=== PATIENT | male | born 1985 | race Caucasian/White ===

== ENCOUNTER 2019-10-07 15:02 | Emergency (ER) | payer OTHER ==
[~2019-10-07] VITALS: Ht 175.3 cm; Wt 93.4 kg
--- NOTE | 2019-10-07 15:54 | NUR ---
BIBS FROM HOME TO ER BED 12. AAOX4. NOT IN RESP DISTRESS, BREATHING EVEN AND UNLABORED. AMBULATORY. CAME IN FOR PALPITAION. PER PT, HE AL OF A SUDDEN FELT HAVING RAPID HR, FEELING OF DIFFULUCT TO BREATH, TINGLING AND NUMBNESS ON BOTH HIS ARMS. DURING ASSESSMENT, PT IS NOTED WITH HR 73. PT IS ANXIOUS UPON PRESENTATION. DENIES ANY CHEST PAIN. TINGLING AND NUMBNESS IS NOT PRESENT AT TIME OF ASSSESMENT. PT REPORTS THAT HE HAD SOME ALCOHOL LAST NIGHT. SINCE THIS MORNING HE ALREADY HAD 3 CUPS OF GREEN TEA. PT ON MONITOR. AWAITING MD FOR AYDEE.
[2019-10-07] MEDS ORDERED: ALPRAZOLAM 0.25 MG TABLET PO ONE (16:00)
[2019-10-07] MEDS ORDERED: ALPRAZOLAM 0.25 MG TABLET ONE (16:00)
--- NOTE | 2019-10-07 16:04 | NUR ---
EKG AT BEDSIDE
[2019-10-07 16:15] LABS: BASOPHILS % (AUTO) 0.3 % (0.0-2.0); EOSINOPHILS % (AUTO) 1.3 % (0.0-6.0); HEMATOCRIT 44 % (39-51); LYMPHOCYTES # (AUTO) 1.2 /CMM (0.8-4.8); LYMPHOCYTES % (AUTO) 22.1 % (20.0-44.0); MEAN CORPUSCULAR HGB CONC 34 g/dl (31.0-36.0); MEAN CORPUSCULAR VOLUME 89 fL (80-96); MONOCYTES # (AUTO) 0.4 /CMM (0.1-1.30); MONOCYTES % (AUTO) 6.3 % (2.0-12.0); NEUTROPHILS # (AUTO) 3.9 /CMM (1.8-8.9); PLATELET COUNT (AUTO) 189 /CMM (150-450); RED BLOOD CELL COUNT(AUTO) 4.95 MIL/uL (4.5-6.0); WHITE BLOOD COUNT (AUTO) 5.6 K/uL (4.3-11.0)
[2019-10-07 16:22] LABS: CALCIUM, SERUM 8.9 mg/dL (8.5-10.1); CREATININE 0.9 mg/dL (0.6-1.3); POTASSIUM 3.7 mmol/L (3.5-5.1)
[2019-10-07 17:37] VITALS: BP 134/77
--- NOTE | 2019-10-07 17:37 | NUR ---
Patient discharged to home in stable condition. Written and verbal after care instructions given. Patient verbalizes understanding of instruction. Pt ambulatory with a steady gait
== END 2019-10-07 17:38 | disposition home or self-care (01) ==
LOC: ER 15:25
DX: F41.9 Anxiety disorder, unspecified (principal)
CPT/HCPCS: 36415; 80048-TC; 83735-TC; 85025-TC